=== PATIENT | male | born 1980 | race Caucasian/White ===

== ENCOUNTER 2019-12-21 10:27 | Emergency (ER) | payer OTHER, SELFPAY ==
[2019-12-21 10:43] VITALS: BP 138/92; PULSE 79; RESP 20; TEMP 36.6; O2SAT 100
--- NOTE | 2019-12-21 11:24 | ED.UPPEXIN ---
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 He states that he gets a shooting pain when he extends his lt arm up. He denies any fall or injury to his lt wrist but notes that he does heavy lifting at work. Pt is rt-handed. He has been wearing a wrist splint and using ice that has given him temporary relief. Pt denies shoulder pain, neck pain, or numbness/tingling. MD complaint: injury to: left and wrist Onset (ago): week(s) (2) Other injuries: none Handedness: right Place: work Relieving factors: cold therapy and immobilization Associated symptoms: denies other symptoms Related Data Home Medications Medication Instructions Recorded Confirmed allopurinol 100 mg tablet 100 mg PO DAILY 08/07/19 12/21/19 allopurinol 300 mg tablet 300 mg PO DAILY 08/07/19 12/21/19 Allergies Allergy/AdvReac Type Severity Reaction Status Date / Time No Known Allergies Allergy Verified 12/21/19 10:55 Review of Systems Review of Systems: Narrative: General/Constitutional: No weight loss,fever Eyes: N0: Redness,discharge Ears/Nose/Throat: No: Epistaxis,ear discharge Respiratory: Denies: Hemoptysis Gastrointestinal: No Vomiting, Bleeding-rectal Skin: No Lumps, eruption Neurologic: No Focal Weakness,Sz. Denies numbness/tingling Hematologic: Denies: Petechiae/Purpura Musculoskeletal: Reports lt wrist pain. Denies shoulder pain or neck pain. Psychiatric: No: Suicidal ideation All Other Systems: Reviewed and Negative [facility] Past Medical History Medical History Glaucoma associated with chamber angle anomaly, mild stage Idiopathic gout Mixed hyperlipidemia Surgical History Surgical History (Updated 12/21/19 @ 11:46 by Pat Muhammad) No significant past surgical history Family History Family History (Updated 05/04/16 @ 23:21 by DOCTOR UNKNOWN) Mother Patient's mother is in good health Father Patient's father is in good health Social History Social History Smoking status: Never smoker Alcohol intake: current Comments At time of signature, agree with nursing past medical, surgical, social and family history. There is no relevant family history pertinent to the presenting complaint Exam Narrative: Exam Narrative: General Appearance: Well appearing, Well nourished, No distress EYE: PERRLA, EOMI, Conjunctiva clear Ears: External ear normal, Auditory canal normal Nose: Normal nose, Nares clear Mouth/Throat: Normal appearing, Normal lips Neck: Supple Respiratory: Airway patent, No respiratory distress Musculoskeletal: lt wrist normal strength (mostly intact, limited flexion/extension by pain), Lt wrist tenderness (radial styloid process, with mild decreased ROM), no swelling. No lt shoulder tenderness. Skin: Warm, Dry, Normal color; no snuffbox tenderness Neurological: A&O x3, Speech clear, CN II-XII intact Psychiatric: Normal mood, Normal affect Course Vital Signs Vital signs: Vital Signs Temperature 97.9 F 12/21/19 10:43 Pulse Rate 79 12/21/19 10:43 Respiratory Rate 20 12/21/19 10:43 Blood Pressure 138/92 H 12/21/19 10:43 Pulse Oximetry 100 12/21/19 10:43 Temperature 97.9 F 12/21/19 10:43 Pulse Rate 79 12/21/19 10:43 Respiratory Rate 20 12/21/19 10:43 Blood Pressure 138/92 H 12/21/19 10:43 Pulse Oximetry 100 12/21/19 10:43 Discharge Plan Discharge Clinical Impression: De Quervain's disease (radial styloid tenosynovitis) Patient Disposition: Home, Self-Care Condition: Stable Instructions: Tendinitis (ED) Prescripti
== END 2019-12-21 11:40 | disposition home or self-care (01) ==
PROVIDERS: Emergency Provider Emergency Medicine; PCP Internal Medicine
DX: M65.4 Radial styloid tenosynovitis [de Quervain] (principal); E78.2 Mixed hyperlipidemia; H40.9 Unspecified glaucoma; M10.9 Gout, unspecified
CPT/HCPCS: 99213; G0463

== ENCOUNTER 2022-08-06 08:54 | Outpatient (CLI) | payer OTHER, SELFPAY ==
[2022-08-06 19:07] LABS: Alanine Aminotransferase 45 U/L (6-50); Albumin Level 4.8 g/dL (3.5-5.1); Alkaline Phosphatase 61 U/L (38-126); Anion Gap 14 mmol/L (8-16); Aspartate Amino Transferase 39 U/L (17-59); Bilirubin,Total 0.9 mg/dL (0.2-1.3); Blood Urea Nitrogen 15 mg/dL (9-20); Calcium 9.4 mg/dL (8.4-10.2); Carbon Dioxide 22 mmol/L (22-30); Chloride 106 mmol/L (98-107); Cholesterol 179 mg/dL (0-200); Estimated Glomerular Filt Rate > 60; Glucose 97 mg/dL (65-110); HDL Direct 50 mg/dL; Potassium 4.5 mmol/L (3.4-5.0); Sodium 142 mmol/L (137-145); Triglycerides 116 mg/dL (<150); Uric Acid 6.1 mg/dL (3.5-8.5)
[2022-08-06 19:19] LABS: LDL Cholesterol Direct 92 mg/dL
== END 2022-08-06 08:55 | disposition home or self-care (01) ==
PROVIDERS: PCP Family Medicine; Visit Provider Family Medicine
DX: M10.9 Gout, unspecified (principal); E78.2 Mixed hyperlipidemia; Z13.228 Encounter for screening for other metabolic disorders
CPT/HCPCS: 36415; 80053; 80061; 84550

== ENCOUNTER 2024-01-08 14:28 | Outpatient (CLI) | payer OTHER, SELFPAY ==
[2024-01-08 21:30] LABS: Alanine Aminotransferase 32 U/L (6-50); Albumin Level 4.7 g/dL (3.5-5.1); Alkaline Phosphatase 60 U/L (38-126); Anion Gap 3 mmol/L (4-12); Aspartate Amino Transferase 38 U/L (17-59); Bilirubin,Total 1.2 mg/dL (0.2-1.3); Blood Urea Nitrogen 14 mg/dL (9-20); Calcium 9.8 mg/dL (8.4-10.2); Carbon Dioxide 32 mmol/L (22-30); Chloride 105 mmol/L (98-107); Cholesterol 173 mg/dL (0-200); Estimated Glomerular Filt Rate > 60; Glucose 86 mg/dL (65-110); HDL Direct 46 mg/dL; Potassium 3.6 mmol/L (3.4-5.0); Sodium 140 mmol/L (137-145); Triglycerides 133 mg/dL (<150); Uric Acid 6.3 mg/dL (3.5-8.5)
[2024-01-08 21:40] LABS: LDL Cholesterol Direct 106 mg/dL
== END 2024-01-08 14:29 | disposition home or self-care (01) ==
LOC: ANHGOSHLAB 14:29
PROVIDERS: PCP Family Medicine; Visit Provider Family Medicine
DX: Z00.00 Encounter for general adult medical examination without abnormal findings (principal); E78.2 Mixed hyperlipidemia; M10.9 Gout, unspecified; Z13.228 Encounter for screening for other metabolic disorders
CPT/HCPCS: 36415; 80053; 80061; 84550

== ENCOUNTER 2024-01-14 13:39 | Outpatient (CLI) | payer OTHER, SELFPAY ==
[2024-01-14 20:01] LABS: HIV 1/2 Ab P24 Ag Result Negative (Negative)
[2024-01-14 20:10] LABS: Chlamydia trachomatis NOT DETECTED (NOT DETECTE); Neisseria gonorrhoeae PCR NOT DETECTED (NOT DETECTE)
[2024-01-14 20:22] LABS: Hepatitis C Virus Antibody Negative (Negative)
[2024-01-15 14:40] LABS: Rapid Plasma Reagin Non-Reactive (NonReactive)
== END 2024-01-14 13:40 | disposition home or self-care (01) ==
LOC: ANHGOSHLAB 13:40
PROVIDERS: PCP Family Medicine; Visit Provider Family Medicine
DX: Z20.2 Contact with and (suspected) exposure to infections with a predominantly sexual mode of transmission (principal)
CPT/HCPCS: 36415; 86592; 86703; 86803; 87491; 87591; G0432

== ENCOUNTER 2024-06-02 12:44 | Emergency (ER) | payer OTHER, SELFPAY ==
[2024-06-02 12:57] VITALS: BP 140/92; PULSE 90; RESP 16; TEMP 36.3; O2SAT 97
--- NOTE | 2024-06-02 13:02 | ED.FEMALEGU ---
HPI - Female Genitourinary General Chief complaint: Urogenital-Male Stated complaint: blood in urine Time Seen by Provider: 06/02/24 13:04 Source: patient, RN notes reviewed and old records reviewed Mode of arrival: ambulatory Limitations: no limitations History of Present Illness HPI Narrative: 44-year-old male presents to the [facility] with concerns of blood in his urine. Patient reports symptoms started on Saturday, drink a lot a water, got a little bit better on Saturday and Saturday but still was some blood in it. Woke up today and it is dark and passing blood clots. Patient denies any abdominal pain, any new back pain. Denies fevers. Related Data Home Medications Medication Instructions Recorded Confirmed latanoprost 0.005 % eye drops 1 drp EACH EYE HS 06/02/24 06/02/24 sildenafil (pulm.hypertension) 20 20 mg PO PRN PRN Erectile 06/02/24 06/02/24 mg tablet Dysfunction timolol maleate 0.5 % eye drops 1 drp EACH EYE DAILY 06/02/24 06/02/24 Allergies Allergy/AdvReac Type Severity Reaction Status Date / Time No Known Allergies Allergy Verified 06/02/24 12:52 Review of Systems Review of Systems: All systems reviewed & are unremarkable except as noted in HPI and below Constitutional: Constitutional: Reports no additional constitutional complaints Eyes: Eyes: Reports no additional eye complaints ENT: Reports system reviewed and no additional complaints, except as documented Cardiovascular: Cardiovascular: Reports no additional cardiovascular complaints, Denies chest pain and Denies dyspnea Respiratory: Respiratory: Reports no additional respiratory complaints, Denies chest congestion, Denies cough and Denies dyspnea Gastrointestinal: Gastrointestinal: Reports no additional gastrointestinal complaints, Denies abdominal pain, Denies nausea and Denies vomiting Genitourinary: Genitourinary: Reports as per HPI and Reports hematuria Musculoskeletal: Musculoskeletal: Reports no additional musculoskeletal complaints Integumentary/Breasts: Skin/Breast: Reports system reviewed and no additional complaints, except as docu Neurologic: Reports system reviewed and no additional complaints, except as documented Psychiatric: Psychiatric: Reports no additional psychiatric complaints Allergic/Immunologic: Allergic/Immunologic: Reports no additional allergic/immunologic complaints PMFSH Past Medical History Medical History Glaucoma associated with chamber angle anomaly, mild stage Idiopathic gout Mixed hyperlipidemia Surgical History Surgical History No significant past surgical history Family History Family History Mother Patient's mother is in good health Father Patient's father is in good health Grandparent Carcinoma of colon Social History Social History Social History: caffeine- none daily Smoking status: Never smoker Second hand tobacco smoke exposure: No Alcohol intake: current Drinks per week: 12 Alcohol use details: liquor Substance use: never Do You Feel Safe in your Home?: Yes Lack of Transportation: No Lack of Food: Sometimes True Current Housing: I Have Housing Concerned About Future Housing: No Difficulty Paying Gas/Electric Bills: No Difficulty Paying for Meds: No Currently Unemployed: No Education: Bachelor's Degree Difficulty w/ Childcare or Family Care: No Comments At the time of my signature, I reviewed and agree with the nursing past medical, surgical, social, and family history. There is no relevant family history pertinent to the patient complaint. Exam Const: General: cooperative, healthy appearing, comfortable, no acute distress, well developed, alert and well nourished Nutritional Appearance: well nourished Orientation/conscio
[2024-06-03 11:36] LABS: EDUAAPPEAR Cloudy; EDUABILI 3+; EDUABLOOD 3+; EDUACOLOR1 Brown; EDUAGLUCOSE Negative; EDUAKETONE 2+; EDUALEUKO 2+; EDUANITRATE Positive; EDUAPROTEIN 2+; EDUASPGRAVITY 1.025
== END 2024-06-02 13:39 | disposition short-term general hospital (02) ==
PROVIDERS: Emergency Provider Nurse Practitioner; PCP Family Medicine
DX: R31.0 Gross hematuria (principal); H40.9 Unspecified glaucoma; M10.00 Idiopathic gout, unspecified site; E78.2 Mixed hyperlipidemia
CPT/HCPCS: 81003; 87086; 99213; G0463

== ENCOUNTER 2024-06-02 15:03 | Emergency (ER) | payer OTHER, SELFPAY ==
--- NOTE | ~2024-06-02 | CT_ITS ---
EXAMINATION: CT abdomen pelvis wo con DATE: 06/02/2024 19:06 INDICATION: Hematuria. TECHNIQUE: Computed tomography (CT) of the abdomen and pelvis was performed without intravenous contr ast. Automated exposure control and iterative reconstruction technique were employed. The dose-length product was 1017.30 mGy-cm. COMPARISON: None. FINDINGS: The visualized portions of lung bases demonstrate mild atelectasis on the left. No pleural effusion. The heart size is normal. No pericardial effusion. The liver, gallbladder, spleen, pancreas , and adrenal glands are normal. There is a 5 mm stone in right renal pelvis. There is a 2 mm stone i n left kidney. The ureters are normal. The bladder is normal. There are bilateral inguinal hernias co ntaining fat. There are no dilated loops of bowel. The appendix is normal. There are no pathologicall y enlarged lymph nodes. There is no free intraperitoneal fluid. There is an umbilical hernia containi ng fat. There is mild thoracic spondylosis and moderate lower lumbar spondylosis. IMPRESSION: 1. Bilateral nonobstructing kidney stones. Reviewed, dictated and finalized at location A.
[2024-06-02 15:43] VITALS: BP 168/104; PULSE 100; RESP 18; TEMP 36.7; O2SAT 99
--- NOTE | 2024-06-02 15:45 | ED.MALEGU ---
HPI - Male Genitourinary General Chief complaint: Urogenital-Male Stated complaint: blood in urine Time Seen by Provider: 06/02/24 15:45 Focused HPI: This is a 44 year old male that presents to the ER for hematuria. Ongoing over the last 4 days. Denies any associated pain, vomiting, dysuria, fevers. GENERAL: Well-appearing, well-nourished, and in no acute distress. HEAD: Normocephalic, atraumatic. CHEST: Clear to auscultation. ?No respiratory distress. HEART: Regular rate and rhythm.? NEURO: ?Alert and oriented x3. Patient screened in triage and initial orders placed.? ?Additional care and disposition to be based upon?diagnostic testing and treatment. Related Data Home Medications Medication Instructions Recorded Confirmed latanoprost 0.005 % eye drops 1 drp EACH EYE HS 06/02/24 06/02/24 sildenafil (pulm.hypertension) 20 20 mg PO PRN PRN Erectile 06/02/24 06/02/24 mg tablet Dysfunction timolol maleate 0.5 % eye drops 1 drp EACH EYE DAILY 06/02/24 06/02/24 Allergies Allergy/AdvReac Type Severity Reaction Status Date / Time No Known Allergies Allergy Verified 06/02/24 12:52 [facility] Past Medical History Medical History (Updated 06/04/24 @ 15:57 by Nilam Amador PA-C) Glaucoma associated with chamber angle anomaly, mild stage Idiopathic gout Mixed hyperlipidemia Surgical History Surgical History No significant past surgical history Family History Family History Mother Patient's mother is in good health Father Patient's father is in good health Grandparent Carcinoma of colon Social History Social History Social History: caffeine- none daily Smoking status: Never smoker Second hand tobacco smoke exposure: No Alcohol intake: current Drinks per week: 12 Alcohol use details: liquor Substance use: never Do You Feel Safe in your Home?: Yes Lack of Transportation: No Lack of Food: Sometimes True Current Housing: I Have Housing Concerned About Future Housing: No Difficulty Paying Gas/Electric Bills: No Difficulty Paying for Meds: No Currently Unemployed: No Education: Bachelor's Degree Difficulty w/ Childcare or Family Care: No Course Vital Signs Vital signs: Vital Signs Temperature 98.1 F 06/02/24 15:43 Pulse Rate 100 06/02/24 15:43 Respiratory Rate 18 06/02/24 15:43 Blood Pressure 168/104 H 06/02/24 15:43 Pulse Oximetry 99 06/02/24 15:43 Oxygen Delivery Room Air 06/02/24 15:43 Temperature 98.1 F 06/02/24 15:43 Pulse Rate 100 06/02/24 15:43 Respiratory Rate 18 06/02/24 15:43 Blood Pressure 168/104 H 06/02/24 15:43 Pulse Oximetry 99 06/02/24 15:43 Oxygen Delivery Room Air 06/02/24 15:43 MDM - Male Genitourinary MDM Narrative Medical decision making narrative: Patient left after medical screening exam and initial workup before any further evaluation or management Lab Data 06/02/24 16:32 06/02/24 16:32 Labs: Lab Results 06/02/24 06/02/24 Range/Units 15:49 16:32 WBC 9.3 (4.5-10.0) K/mm3 RBC 4.80 (4.6-6.20) M/mm3 Hgb 15.2 (14.0-18.0) g/dL Hct 43.4 (42.0-52.0) % MCV 90.4 (80-100) fl MCH 31.7 (26-34) pg MCHC 35.0 (32-36) g/dl RDW 13.1 (11.5-14.5) % Plt Count 283 (150-375) k/mm3 MPV 10.7 H (7.4-10.4) fl Immature Gran % (Auto) 0.3 (0-0.5) % Neut % (Auto) 59.9 (45.5-73.1) % Lymph % (Auto) 26.8 (18.3-44.2) % [place] % (Auto) 9.5 H (2.6-8.5) % Eos % (Auto) 2.6 (0-4.4) % Baso % (Auto) 0.9 (0.2-1.2) % Lymph # (Auto) 2.49 (0.9-3.2) K/mm3 [place] # (Auto) 0.9 H (0.1-0.6) K/mm3 Eos # (Auto) 0.2 (0-0.3) K/mm3 Baso # (Auto) 0.1 (0.0-0.1) K/mm3 Abs Immat Gran (auto) 0.03 (0.00-0.031) K/mm3 Absolute Neuts (auto) 5.6 (1.3-6.7) K/mm3 Absolute Nucl
[2024-06-02 16:08] LABS: Add Urine Microscopic? YES; Appearance Urine Cloudy (Clear); Bacteria Urine None Seen /hpf; Bilirubin Urine Negative (Negative); Blood Urine 3+ (Negative); Color Urine Dark Yellow (Yellow); Glucose Urine UA Negative (Negative); Ketones Urine Negative (Negative); Leukocyte Esterase Ur 1+ LEU/UL (Negative); Nitrate Urine Negative (Negative); Non Pathogenic Casts 0-2; Protein Urine 1+ mg/dL (Negative); RBC Urine >100 /hpf (0-2); Specific Grav Ur 1.021 (1.001-1.035); Squamous Epithelial Cell Urine None Seen /hpf (Few); pH Urine 5.5 (5.0-9.0)
[2024-06-02 16:53] LABS: Basophils Absolute Auto 0.1 K/mm3 (0.0-0.1); Basophils Percent Auto 0.9 % (0.2-1.2); Eosinophils Absolute Auto 0.2 K/mm3 (0-0.3); Eosinophils Percent Auto 2.6 % (0-4.4); Hematocrit 43.4 % (42.0-52.0); Hemoglobin 15.2 g/dL (14.0-18.0); Immature Granulocyte Absolute 0.03 K/mm3 (0.00-0.031); Immature Granulocyte Percent A 0.3 % (0-0.5); Lymphocytes Absolute Auto 2.49 K/mm3 (0.9-3.2); Lymphocytes Percent Auto 26.8 % (18.3-44.2); Mean Corpuscular Hemoglobin 31.7 pg (26-34); Mean Corpuscular Volume 90.4 fl (80-100); Mean Platelet Volume 10.7 fl (7.4-10.4); Monocytes Absolute Auto 0.9 K/mm3 (0.1-0.6); Monocytes Percent Auto 9.5 % (2.6-8.5); Neutrophils Absolute Auto 5.6 K/mm3 (1.3-6.7); Neutrophils Percent Auto 59.9 % (45.5-73.1); Platelet Count Result 283 k/mm3 (150-375); Red Cell Distribution Width 13.1 % (11.5-14.5); White Blood Count 9.3 K/mm3 (4.5-10.0)
[2024-06-02 17:09] LABS: Alanine Aminotransferase 68 U/L (6-50); Albumin Level 4.8 g/dL (3.5-5.1); Alkaline Phosphatase 57 U/L (38-126); Anion Gap 10 mmol/L (4-12); Aspartate Amino Transferase 40 U/L (17-59); Bilirubin,Total 0.8 mg/dL (0.2-1.3); Blood Urea Nitrogen 14 mg/dL (9-20); Calcium 9.4 mg/dL (8.4-10.2); Carbon Dioxide 29 mmol/L (22-30); Chloride 100 mmol/L (98-107); Estimated CRCL calculation 101 ml/min; Estimated Glomerular Filt Rate > 60; Glucose 108 mg/dL (65-110); Lipase 281 U/L (23-300); Potassium 3.9 mmol/L (3.4-5.0); Sodium 139 mmol/L (137-145)
--- NOTE | 2024-06-02 22:03 | PC.NURSE ---
patient states they are unable to be in the waiting room any longer and are not having symptoms. states they will call PCP fist thing in the morning. no resp. distress and ambulates well
== END 2024-06-03 03:54 | disposition left against medical advice (07) ==
PROVIDERS: Emergency Provider Physician Assistant; PCP Family Medicine
DX: R31.9 Hematuria, unspecified (principal); E78.2 Mixed hyperlipidemia; M10.00 Idiopathic gout, unspecified site; H40.50 Glaucoma secondary to other eye disorders, unspecified eye; Z79.899 Other long term (current) drug therapy; N20.0 Calculus of kidney
CPT/HCPCS: 36415; 74176; 80053; 81001; 81003; 83690; 85025; 87086; 99284

== ENCOUNTER 2024-06-23 08:45 | Outpatient (CLI) | payer OTHER, SELFPAY ==
--- NOTE | ~2024-06-23 | XR_ITS ---
XR abdomen/kub 1V Ordering provider: Eloy Pagan MD History: . Kidney stone on right side . Comparison: None. FINDINGS: BOWEL: Nonobstructive bowel gas pattern. ORGANOMEGALY: None. SIGNIFICANT PATHOLOGIC CALCIFICATIONS: Tiny stone in the right kidney lower pole. OTHER: No free air is seen under the diaphragm. IMPRESSION: NO ACUTE ABDOMINAL FINDINGS. Tiny stone in the right kidney lower pole. Reviewed, dictated and finalized at location A.
== END 2024-06-23 08:46 | disposition home or self-care (01) ==
PROVIDERS: PCP Family Medicine; Visit Provider Urology
DX: N20.0 Calculus of kidney (principal)
CPT/HCPCS: 74018

== ENCOUNTER 2024-07-15 10:44 | Outpatient (CLI) | payer BC, SELFPAY ==
--- NOTE | ~2024-07-15 | CT_ITS ---
Non-contrast CT scan of the Abdomen and Pelvis Clinical indication: Right kidney stone Technique: 2.5 mm axial scans were obtained through the abdomen and pelvis without intravenous or or al contrast. Dose reduction technique was used on this scan by utilizing automated exposure control a nd iterative reconstruction technique. The dose-length product (DLP) was 712.66 mGy-cm. COMPARISON: 06/02/2024 Findings: Images through the lung bases reveal no abnormalities. 5 mm nonobstructing right renal stone present. No left renal stone. No ureteral stone or hydronephros is on either side. The liver, spleen, pancreas, gallbladder, and adrenals appear normal. There is no aortic aneurysm. There is no evidence of bowel obstruction. Images through the pelvis were performed. There is no evidence of ascites or lymphadenopathy. Urinary bladder unremarkable. No pelvic mass seen. Small fat-containing bilateral internal hernias are prese nt, left larger than right. Impression: 5 mm nonobstructing right renal stone. No ureteral stone or hydronephrosis on either side. Bilateral fat-containing inguinal hernias, left larger than right. Reviewed, dictated and finalized at location . Impression: 5 mm nonobstructing right renal stone. No ureteral stone or hydronephrosis on e ither side. Bilateral fat-containing inguinal hernias, left larger than right.
--- NOTE | ~2024-07-15 | XR_ITS ---
XR abdomen/kub 1V 07/15/2024 11:10 Indication: Kidney stone. Procedure: KUB Comparison: 06/23/2024 Findings: Stable right renal stone. Kidneys partially obscured by bowel content. Nonobstructive bowel gas pattern. No acute osseous abnormality. Impression: 1: Stable right nephrolithiasis. Reviewed, dictated and finalized at location B. Impression: 1: Stable right nephrolithiasis.
== END 2024-07-15 10:45 | disposition home or self-care (01) ==
PROVIDERS: PCP Family Medicine; Visit Provider Urology
DX: N20.0 Calculus of kidney (principal); K40.20 Bilateral inguinal hernia, without obstruction or gangrene, not specified as recurrent
CPT/HCPCS: 74018; 74176

== ENCOUNTER 2024-07-31 09:51 | Outpatient (CLI) | payer BC, SELFPAY ==
--- NOTE | 2024-07-31 10:03 | ECG_ITS ---
Test Date: 2024-07-31 10:16:17 Measurements Intervals [place] Rate: 79 P: 31 KS: 154 QRS: 50 QRSD: 97 T: 54 QT: 339 QTc: 390 Interpretive Statements SINUS RHYTHM No previous ECG available for comparison Electronically Signed On 07-31-2024 15:36:46 CDT by Harinder Wilson M.D.
== END 2024-07-31 09:52 | disposition home or self-care (01) ==
PROVIDERS: PCP Family Medicine; Visit Provider Urology
DX: Z01.818 Encounter for other preprocedural examination (principal); E78.2 Mixed hyperlipidemia
CPT/HCPCS: 93005

== ENCOUNTER 2024-08-06 01:09 | Day surgery (SDC) | payer BC, SELFPAY ==
--- NOTE | 2024-07-24 11:59 | P.HP_ITS ---
History of Present Illness History of Present Illness Consent: Risks, benefits, and alternatives have been discussed and questions answered. Patient agrees to proceed with procedure. Chief complaint: right renal stone Narrative: Tyron Almeida is a 44 year old male recently referred for evaluation gross hematuria. Upper tract imaging revealed 2 mm stone his left and a 5 mm right renal pelvic stone. The stone a noncalcified a KUB. Unfortunately, following attempted urinary alkalinization, the stones persist. After discussion options he is electing for endoscopic approach to his right renal pelvic stone. He is aware of the risk including, not limited to, need for additional procedures, stent placement, hematuria and ureteral injury Review of Systems Cardiovascular: Cardiovascular: Denies chest pain, Denies lightheadedness, Denies palpitations and Denies dyspnea Respiratory: Respiratory: Denies dyspnea Gastrointestinal: Gastrointestinal: Denies diarrhea, Denies nausea and Denies vomiting Genitourinary: Genitourinary: Denies hematuria and Denies dysuria Endocrine: Endocrine: Denies palpitations PMFSH Past Medical History Medical History (Updated 07/24/24 @ 12:01 by Eloy Pagan MD) Glaucoma associated with chamber angle anomaly, mild stage Idiopathic gout Mixed hyperlipidemia Surgical History Surgical History No significant past surgical history Family History Family History Mother Patient's mother is in good health Father Patient's father is in good health Grandparent Carcinoma of colon Social History Social History Social History: caffeine- none daily Smoking status: Never smoker Second hand tobacco smoke exposure: No Alcohol intake: current Drinks per week: 12 Alcohol use details: liquor Substance use: never Do You Feel Safe in your Home?: Yes Lack of Transportation: No Lack of Food: Sometimes True Current Housing: I Have Housing Concerned About Future Housing: No Difficulty Paying Gas/Electric Bills: No Difficulty Paying for Meds: No Currently Unemployed: No Education: Bachelor's Degree Difficulty w/ Childcare or Family Care: No Meds Home Medications and Allergies Home Medications Medication Instructions Recorded Confirmed Type atorvastatin 20 mg tablet 20 mg PO DAILY #90 tabs 02/17/24 06/19/24 Rx cetirizine 10 mg tablet See Rx Instructions .Route 02/17/24 06/19/24 Rx .COMPLEX #90 tabs allopurinol 300 mg tablet 300 mg PO DAILY #90 tabs 03/16/24 06/19/24 Rx latanoprost 0.005 % eye drops 1 drp EACH EYE HS 06/02/24 06/19/24 History sildenafil (pulm.hypertension) 20 20 mg PO PRN PRN Erectile 06/02/24 06/19/24 History mg tablet Dysfunction timolol maleate 0.5 % eye drops 1 drp EACH EYE DAILY 06/02/24 06/19/24 History tamsulosin 0.4 mg capsule 0.4 mg PO DAILY #30 caps 06/03/24 06/19/24 Rx hydrocodone 5 mg-acetaminophen 325 1 tablet PO Q8H PRN pain #7 tabs 06/04/24 06/19/24 Rx mg tablet phentermine 37.5 mg capsule 37.5 mg PO DAILY #30 caps 07/10/24 Rx Allergies Allergy/AdvReac Type Severity Reaction Status Date / Time No Known Allergies Allergy Verified 06/19/24 10:42 Exam Const: General: no acute distress Resp: Effort & Inspection: normal respiratory effort GI: Inspection: non-distended GI Palp: No abdominal tenderness and No Guarding due to palpation present (GI) Auscultation: normal bowel sounds Assessment and Plan Assessment and plan (1) Bilateral renal stones: Code(s): N20.0 - Calculus of kidney Status: Acute Assessment and Plan: * Cystoscopy, right ureteroscopy with laser lithotripsy, stone extraction with possible retrograde pyelography and stent placement
[2024-07-29 15:16] VITALS: BMI 34.7
--- NOTE | 2024-07-29 15:36 | PC.NURSE ---
Report to the Outpatient Waiting Room, entrance under the green pavilion located off [facility], at time _0815 on date __08/06/24 . Planned Procedure Time: _1015 .? Time changes happen often and if your time is changed the preop area will call you the afternoon before. - You and your visitor will be asked to self-screen and do not enter if you have any COVID symptoms. Please call surgeon if you need to reschedule. - A mask is optional within the hospital at this time. Patients may have clear liquids (water, carbonated beverages, clear teas, apple juice) until 3 hours prior to surgery with a maximum of 20 ounces. - No food from midnight until time of surgery and no smoking - Infants may have breast milk until 4 hours before surgery, formula 6 hours prior to surgery. - Children will be allowed to drink immediately following surgery.? If applicable, please bring a bottle or sippy cup to assist with drinking. Juice, water, soda, and popsicles are readily available.? For infants on formula, please bring formula the day of surgery.? Pacifiers are allowed. Take only the following medications with a SIP of water on the morning of surgery: _Hydrocodone/acetaminophen DO NOT STOP ANY OF YOUR OTHER PRESCRIPTION MEDICATIONS PRIOR TO SURGERY EXCEPT THE FOLLOWING Medications to discontinue per physician __Vitamins 3 days prior Please no make-up, nail yemeni, hairspray, perfume, deodorant, or body powder the day of surgery.? No jewelry (including any body piercings) or valuables the day of surgery, leave them at home.? Please take a shower or bath the night before, or the morning of, surgery with an antibacterial soap.? Wear comfortable, loose fitting clothing.? Children are encouraged to wear pajamas. - Jewelry must be removed prior to entering the operating room.? Rings and piercings that are not removed may be cut off. - The hospital will not accept responsibility for valuables.? - Please leave all valuables, including medications, at home the day of surgery. If you are going home after surgery, a licensed restaurant delivery driver must drive you home.? - NO public transportation without another adult if you receive anesthesia. - We recommend that an adult stay with you for 24 hours following discharge. - We also recommend that you do not drive, make important decision, drink alcoholic beverages, or take any drugs that were not prescribed by your health care provider for at least 24 hours after your discharge time. For Pediatric surgeries, we recommend two adults accompany the child home. Follow any additional instructions given to you from your surgeon. Telephone instructions given to __Tyron and asked if any additional questions and then verbalized understanding. Patient advised to call surgeon office or pre surgery nurse liaison [phone] if any additional questions.
[2024-08-06] VITALS (7 sets, daily range): BP systolic 123–147; BP diastolic 86–96; PULSE 84–96; RESP 14–20; TEMP 36.4–36.6; O2SAT 96–98; BMI 34.5
--- NOTE | ~2024-08-06 | XR_ITS ---
EXAMINATION: XR retrograde pyelo w/stent RT DATE: 08/06/2024 11:42 INDICATION: Laser right renal stone extraction and stent placement TECHNIQUE: 39 fluoroscopic images of the abdomen and pelvis were obtained during procedure performed by Dr. Pagan. Radiologist was not present for the imaging or procedure. The amount of fluoroscopy ti me used during this procedure was 1.9 minutes. COMPARISON: None. FINDINGS: Images demonstrate cannulation of the right ureter with injected contrast opacifying the right renal collecting system. The stone seen on the prior radiographs of the lower pole the right kidney is not visualized which could be due to either interval extraction or limitation fluoroscopic technique. Fin al images demonstrate placement of a right internal ureteral stent with loops formed in the right coco al pelvis and bladder. IMPRESSION: 1. Fluoroscopy utilized during reported right renal stone extraction with placement of a right internal medicine nurse al ureteral stent in expected position. See procedure note for further detail. Reviewed, dictated and finalized at location A. IMPRESSION: 1. Fluoroscopy utilized during reported right renal stone extraction with place ment of a right internal ureteral stent in expected position. See procedure not e for further detail.
--- NOTE | 2024-08-06 06:14 | WPDHPUPDATE1 ---
History and Physical Update Update Date/Time: 08/06/24 06:14 History and Physical has been reviewed, including an updated exam of the patient. There are NO changes in the patient's condition. Risks, benefits, and alternatives have been discussed and questions answered. Patient agrees to proceed with procedure.
--- NOTE | 2024-08-06 08:35 | WPDANESEPPF ---
Anes - Initial Pre Proc Eval Procedure: Operation Date: 08/06/24 10:15 Proposed Procedures p Cystoscopy, Right Ureteroscopy, Possible Stone Extraction, Possible Right Retrograde Pyelogram, Possible Right Stent Placement, Possible Holmium Laser Lithotripsy, - Eloy Pagan MD Date/Time: 08/06/24 08:35 Surgeon: Eloy Pagan MD Pre Op Diagnosis: right renal stone Patient Data Age: 44 Gender: M Height: 1.68 m Weight: 97.52 kg Last Vital Signs O2 Del Method Room Air 07/29/24 14:58 Allergies Allergy/AdvReac Type Severity Reaction Status Date / Time No Known Allergies Allergy Verified 07/29/24 15:00 Home Medications Medication Instructions Recorded Confirmed Type atorvastatin 20 mg tablet 20 mg PO DAILY #90 tabs 02/17/24 07/29/24 Rx cetirizine 10 mg tablet See Rx Instructions .Route 02/17/24 07/29/24 Rx .COMPLEX #90 tabs allopurinol 300 mg tablet 300 mg PO DAILY #90 tabs 03/16/24 07/29/24 Rx latanoprost 0.005 % eye drops 1 drp EACH EYE HS 06/02/24 07/29/24 History sildenafil (pulm.hypertension) 20 20 mg PO PRN PRN Erectile 06/02/24 07/29/24 History mg tablet Dysfunction timolol maleate 0.5 % eye drops 1 drp EACH EYE DAILY 06/02/24 07/29/24 History hydrocodone 5 mg-acetaminophen 325 1 tablet PO Q8H PRN pain #7 tabs 06/04/24 07/29/24 Rx mg tablet phentermine 37.5 mg capsule 37.5 mg PO DAILY #30 caps 07/10/24 07/29/24 Rx Adults Multivitamin 1 tablet PO DAILY 07/29/24 07/29/24 History esomeprazole magnesium 20 mg 20 mg PO DAILY 07/29/24 07/29/24 History capsule,delayed release (Nexium) Patient hx anesthesia problems: none Family hx anesthesia problems: none Results Review: All pre-operative results and documents have been reviewed as part of the pre-operative evaluation. [facility] Past Medical History Medical History Bilateral renal stones Glaucoma associated with chamber angle anomaly, mild stage Idiopathic gout Mixed hyperlipidemia Obesity (BMI 30-39.9) Surgical History Surgical History No significant past surgical history Family History Family History Mother Patient's mother is in good health Father Patient's father is in good health Grandparent Carcinoma of colon Social History Social History Social History: caffeine- none daily Smoking status: Never smoker Second hand tobacco smoke exposure: No Alcohol intake: current Drinks per week: 12 Alcohol use details: liquor Substance use: never Substance use type: marijuana Last use: 2020 Do You Feel Safe in your Home?: Yes Lack of Transportation: No Lack of Food: Sometimes True Current Housing: I Have Housing Concerned About Future Housing: No Difficulty Paying Gas/Electric Bills: No Difficulty Paying for Meds: No Currently Unemployed: No Education: Bachelor's Degree Difficulty w/ Childcare or Family Care: No Living arrangements: alone Spiritual care concerns: No Anes - Eval Final PreProcedure Day of Procedure 08/06/24 08:35 Patient weight: overweight Heart: regular rate and rhythm Lungs: clear to auscultation Airway: Mallampati scale class III Neurological: alert and oriented Last oral intake: >/= 8 hours ASA classification: II Emergent: no Anesthetic plan: proceed Anesthesia type and monitoring: general LMA Results Review: All pre-operative results and documents have been reviewed as part of the pre-operative evaluation. Informed Consent: The patient's anesthetic plan and its attendant risks and benefits were discussed with the patient/family/POA. Questions were solicited and answers provided to the satisfaction of the patient/family/POA.
[2024-08-06] MEDS: LACTATED RINGERS 1,000 ML 30 ML IV CONT (08:45)
[2024-08-06] MEDS: ceFAZolin 2 GM/D5W 50 ML 2 GM/50 ML BAG IVPB (11:03)
[2024-08-06] MEDS: LIDOCAINE HCL 2% GEL UROJET 10 ML PKG MUCOUS MEM (11:23)
--- NOTE | 2024-08-06 11:40 | W.PM.PROC2 ---
Procedure Note - Detailed Date of Procedure 08/06/24 Pre-op Diagnosis Right ureteral stone Post-op Diagnosis Other (Right renal stone) Procedure Performed Cystoscopy, right ureteroscopy with laser lithotripsy ureteral stone, right retrograde pyelography and ureteral stent placement Surgeon Eloy Pagan MD Anesthesia General Description of Procedure Patient is brought to the operative suite was prepped draped in routine sterile fashion while in dorsal lithotomy position after the uneventful induction of general LMA anesthetic. Cystoscopy was undertaken with a 19 F rigid cystoscope. He has no urethral strictures and minimal prostatic hyperplasia but a somewhat high bladder neck. Bladder mucosa is normal there was no intravesical foreign body or neoplasm. A 0.035 in glidewire was advanced into his right renal pelvis under fluoroscopy. He seems to have a stricture in the distal ureter or a very narrow ureter which makes dilatation difficult/challenging. Was able to dilate with an 8 F dilator but could not pass a 10 F dilator. I was able to place a 7.5 F flexible ureteral scope. The 5 mm stone that had been in his proximal ureter had washed back into his kidney with irrigation. We identified the stone using a 200 micron holmium laser fiber dusted into particles all smaller than 1 mm. Ureteral scope was removed and a 4.8 F double-J ureteral stent was positioned with the proximal coil in the renal pelvis and distal coil in the bladder. Retrograde pyelography was used to ensure inspection of all calices and appropriate positioning of the stent. The patient tolerated the procedure well was taken recovery room in good condition Estimated Blood Loss 5 Drains Yes Pathology None sent Complications No immediate complications Condition Stable
== END 2024-08-06 13:27 | disposition home or self-care (01) ==
PROVIDERS: PCP Family Medicine; Visit Provider Urology
PROC: (CPT 52352; principal; 2024-08-06 10:15)
DX: N20.0 Calculus of kidney (principal); E78.2 Mixed hyperlipidemia; Z80.0 Family history of malignant neoplasm of digestive organs; Z79.891 Long term (current) use of opiate analgesic
CPT/HCPCS: 52356; 74420; C1769; C2617; J0690; J1100; J2003; J2250; J2405; J2704; J3010; J7120; Q9966

== ENCOUNTER 2024-11-05 14:18 | Outpatient (CLI) | payer BC, SELFPAY ==
--- NOTE | ~2024-11-05 | CT_ITS ---
EXAMINATION: CT sinus wo con DATE: 11/05/2024 14:32 INDICATION: Acute recurrent maxillary sinusitis. TECHNIQUE: Computed tomography (CT) of the paranasal sinuses was performed without intravenous contra st. Iterative reconstruction technique was employed. The dose-length product was 253.47 mGy-cm. COMPARISON: CT 03/19/2019 FINDINGS: There is mild mucosal thickening in the frontal recesses. There is mild mucosal thickening in the ethmoid sinuses. There is moderate mucosal thickening in the sphenoid sinuses. There is mild m ucosal thickening in the maxillary sinuses. There is rightward deviation of the nasal septum. There a re bilateral Ruth Ann cells. The ostiomeatal units are patent. IMPRESSION: 1. Mucosal thickening in the paranasal sinuses. 2. Rightward deviation of the nasal septum. Reviewed, dictated and finalized at location A. 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
== END 2024-11-05 14:19 | disposition home or self-care (01) ==
PROVIDERS: PCP Family Medicine; Visit Provider Otolaryngology
DX: J01.01 Acute recurrent maxillary sinusitis (principal); G47.33 Obstructive sleep apnea (adult) (pediatric); J31.0 Chronic rhinitis; J34.2 Deviated nasal septum
CPT/HCPCS: 70486

== ENCOUNTER 2024-12-08 07:56 | Outpatient (CLI) | payer BC, SELFPAY ==
[2024-12-08 13:26] LABS: Hematocrit 43.4 % (42.0-52.0); Hemoglobin 14.4 g/dL (14.0-18.0); Mean Corpuscular HGB Conc 33.2 g/dl (32-36); Mean Corpuscular Volume 93.3 fl (80-100); Mean Platelet Volume 11.2 fl (7.4-10.4); Platelet Count Result 299 k/mm3 (150-375); Red Blood Count 4.65 M/mm3 (4.6-6.20); Red Cell Distribution Width 12.9 % (11.5-14.5); White Blood Count 6.7 K/mm3 (4.5-10.0)
[2024-12-08 15:01] LABS: Alanine Aminotransferase 35 U/L (6-50); Albumin Level 4.4 g/dL (3.5-5.1); Alkaline Phosphatase 64 U/L (38-126); Anion Gap 9 mmol/L (4-12); Aspartate Amino Transferase 52 U/L (17-59); Blood Urea Nitrogen 18 mg/dL (9-20); Calcium 8.9 mg/dL (8.4-10.2); Carbon Dioxide 28 mmol/L (22-30); Chloride 104 mmol/L (98-107); Cholesterol 143 mg/dL (0-200); Estimated Glomerular Filt Rate > 60; Glucose 115 mg/dL (65-110); HDL Direct 34 mg/dL; Potassium 4.2 mmol/L (3.4-5.0); Sodium 141 mmol/L (137-145); Triglycerides 92 mg/dL (<150)
[2024-12-08 15:17] LABS: LDL Cholesterol Direct 80 mg/dL
[2024-12-08 15:24] LABS: Hemoglobin A1C 5.2 % (<5.7)
[2024-12-08 15:36] LABS: Prostate Specific Antigen 0.5 ng/mL (< OR = 4.0)
== END 2024-12-08 07:57 | disposition home or self-care (01) ==
LOC: ANHGOSHLAB 07:56
PROVIDERS: PCP Family Medicine; Visit Provider Family Medicine
DX: R03.0 Elevated blood-pressure reading, without diagnosis of hypertension (principal); E78.2 Mixed hyperlipidemia; E66.9 Obesity, unspecified; Z12.5 Encounter for screening for malignant neoplasm of prostate; Z79.899 Other long term (current) drug therapy; R73.09 Other abnormal glucose
CPT/HCPCS: 36415; 80053; 80061; 83036; 84153; 84443; 85027; G0103

== ENCOUNTER 2024-12-16 15:14 | Emergency (ER) | payer BC, SELFPAY ==
--- NOTE | ~2024-12-16 | XR_ITS ---
XR ankle LT min 3V Ordering provider: Samreen Casey NP History: . Generalized pain/swelling Lt ankle; twisted ankle this P.M. . Comparison: None. FINDINGS: BONES: No acute fracture or dislocation. JOINT SPACES: The ankle mortise is normal. SOFT TISSUES: Normal. IMPRESSION: No acute osseous abnormality left ankle. Reviewed, dictated and finalized at location A.
[2024-12-16 15:25] VITALS: BP 151/95; PULSE 100; RESP 16; TEMP 36.1; O2SAT 99
--- NOTE | 2024-12-16 15:31 | ED.LOWEXIN ---
HPI - Extremity Injury (Lower) General Chief Complaint: Extremity Injury, Lower Stated Complaint: Injured Ankle Time Seen by Provider: 12/16/24 15:50 Source: patient and RN notes reviewed Mode of arrival: ambulatory Limitations: no limitations History of Present Illness HPI Narrative: 44-year-old male presents with concern for ankle injury. Reports he was stepping out of his truck when he rolled his left ankle when he stepped on a rock. Reports generalized ankle pain, worse in the lateral ankle. Reports it hurts to bear weight, he is using a cane. MD complaint: ankle injury Related Data Home Medications ?Medication ?Instructions ?Recorded ?Confirmed ?Last Taken ?Type latanoprost 0.005 % eye drops 1 drp EACH EYE HS 06/02/24 12/16/24 Unknown History sildenafil (pulm.hypertension) 20 20 mg PO PRN PRN Erectile 06/02/24 12/16/24 Unknown History mg tablet Dysfunction timolol maleate 0.5 % eye drops 1 drp EACH EYE DAILY 06/02/24 12/16/24 Unknown History Adults Multivitamin 1 tablet PO DAILY 07/29/24 12/16/24 08/02/24 History esomeprazole magnesium 20 mg 20 mg PO DAILY 07/29/24 12/16/24 Unknown History capsule,delayed release (Nexium) Allergies Allergy/AdvReac Type Severity Reaction Status Date / Time No Known Allergies Allergy Verified 12/16/24 15:22 Review of Systems Review of Systems: CONSTITUTIONAL: Denies malaise, chills, sweats, or fever. SKIN: Denies rash or itching, open skin, laceration, abrasion, redness, warmth, swelling. MUSCULOSKELETAL: Reports left ankle pain NEUROLOGIC: Denies numbness, weakness All systems reviewed & are unremarkable except as noted in HPI and below PMFSH Past Medical History Medical History (Updated 12/16/24 @ 15:57 by Samreen Casey NP) Bilateral renal stones Obesity (BMI 30-39.9) Glaucoma associated with chamber angle anomaly, mild stage Mixed hyperlipidemia Idiopathic gout Surgical History Surgical History (Updated 12/07/24 @ 14:17 by Olivia Pepe) H/O lithotripsy History of removal of calculus of renal pelvis through percutaneous nephrostomy No significant past surgical history Family History Family History Mother Patient's mother is in good health Father Patient's father is in good health Grandparent Carcinoma of colon Social History Social History Social History: caffeine- none daily Smoking status: Never smoker Second hand tobacco smoke exposure: No Alcohol intake: current Drinks per week: 12 Alcohol use details: liquor Substance use: never Substance use type: marijuana Last use: 2020 Do You Feel Safe in your Home?: Yes Lack of Transportation: No Lack of Food: Sometimes True Current Housing: I Have Housing Concerned About Future Housing: No Difficulty Paying Gas/Electric Bills: No Difficulty Paying for Meds: No Currently Unemployed: No Education: Bachelor's Degree Difficulty w/ Childcare or Family Care: No Living arrangements: alone Spiritual care concerns: No Comments At time of signature, agree with nursing past medical, surgical, social and family history. There is no relevant family history pertinent to the presenting complaint Exam Narrative: GENERAL: Well-appearing, well-nourished, and in no acute distress. HEAD: Normocephalic, atraumatic. EYES: PERRLA, conjunctivae clear NECK: Supple. CHEST: Speaks in full sentences. No respiratory distress. HEART: Regular rate and rhythm. Normal and equal peripheral pulses. EXTREMITIES: Left ankle, foot, digits have grossly normal strength and sensation, grossly normal range of motion. No edema or ecchymosis. Normal sensation with sensitivity to light touch and pain. General ankle tenderness. No open wounds, no skin tenting, no devitalized tissue or atrophy, no trophic changes, no obvious deformity, alignment normal, nearby joints and structures intact. Distal pulses palpable and equal bilaterally, skin warm, dry, pink. Capillary refill less than 3 seconds. SKIN: Warm, dry, no rash. NEURO: Alert and oriented x3. PSYCH: Normal mood and affect Course Course Emergency Course: Patient is aware of diagnosis, understands and agrees to treatment plan. Anticipatory guidance given. Patient agrees to follow-up as directed and is aware of reasons to seek care at the emergency department. Portions of this record may have been created with voice recognition software Level of Care: Express Care Visit Vital Signs Vital signs: Vital Signs Temperature 96.9 F L 12/16/24 15:25 Pulse Rate 100 12/16/24 15:25 Respiratory Rate 16 12/16/24 15:25 Blood Pressure 151/95 H 12/16/24 15:25 Pulse Oximetry 99 12/16/24 15:25 Temperature 96.9 F L 12/16/24 15:25 Pulse Rate 100 12/16/24 15:25 Respiratory Rate 16 12/16/24 15:25 Blood Pressure 151/95 H 12/16/24 15:25 Pulse Oximetry 99 12/16/24 15:25 Reviewed. MDM - Extremity Injury (Lower) MDM Narrative Medical decision making narrative: Patients injury and pain is consistent with musculoskeletal etiology. No signs of neurological or vascular compromise on exam. Compartments and tissues are soft without signs of compartment syndrome. Pain is felt appropriate for further evaluation on an outpatient basis. Imaging Data My impression: Images reviewed, interpreted by radiologist, agree, see report. Radiologist's impression: XR ankle LT min 3V Ordering provider: Samreen Casey NP History: . Generalized pain/swelling Lt ankle; twisted ankle this P.M. . Comparison: None. FINDINGS: BONES: No acute fracture or dislocation. JOINT SPACES: The ankle mortise is normal. SOFT TISSUES: Normal. IMPRESSION: No acute osseous abnormality left ankle. Critical Care Time Critical Care Time Critical Care Time: No Discharge Plan Discharge Clinical Impression: Ankle sprain Patient Disposition: Home, Self-Care Condition: Stable Instructions: Ankle Sprain (ED) Additional Instructions: Avoid activities that cause pain until the pain subsides. Ice to the area 20-30 minutes 4-6 times a day Elevate above heart Walking boot as directed for comfort Tylenol for lesser pain Ibuprofen regularly for the next 2-3 days for the inflammation Follow up with your primary care provider if the condition is not improving within 1 week. If the condition worsens with numbness, tingling, decrease sensation with weakness seek treatment in the emergency room immediately. Patient Language: Maori Prescriptions: New (DME) Walking Boot See Rx Instructions .Route .MEDSUPPLY Qty: 1 0RF Rx Instructions: LLE No Action timolol maleate 0.5 % drops 1 drp EACH EYE DAILY sildenafil (pulm.hypertension) 20 mg tablet 20 mg PO PRN PRN (Reason: Erectile Dysfunction) latanoprost 0.005 % drops 1 drp EACH EYE HS lisinopril 10 mg tablet 10 mg PO DAILY Qty: 90 1RF Adults Multivitamin 1 tablet PO DAILY esomeprazole magnesium [Nexium] 20 mg Capsule,Delayed Release(Dr/Ec) 20 mg PO DAILY cetirizine 10 mg tablet See Rx Instructions .ROUTE .COMPLEX Qty: 90 1RF Dose Instruction: TAKE 1 TABLET BY MOUTH DAILY Rx Instructions: TAKE 1 TABLET BY MOUTH DAILY atorvastatin 20 mg tablet 20 mg PO DAILY Qty: 90 1RF allopurinol 300 mg tablet 300 mg PO DAILY Qty: 90 1RF Follow-up/Referrals: PHYSICIAN,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
== END 2024-12-16 16:02 | disposition home or self-care (01) ==
PROVIDERS: Emergency Provider Nurse Practitioner
DX: S93.402A Sprain of unspecified ligament of left ankle, initial encounter (principal); W22.8XXA Striking against or struck by other objects, initial encounter; E78.2 Mixed hyperlipidemia; M10.00 Idiopathic gout, unspecified site; H40.50 Glaucoma secondary to other eye disorders, unspecified eye; E66.9 Obesity, unspecified; Z68.35 Body mass index [BMI] 35.0-35.9, adult
CPT/HCPCS: 73610; 99213; G0463

== ENCOUNTER 2025-04-19 11:50 | Outpatient (CLI) | payer BC, SELFPAY ==
--- OUTSIDE RECORDS SUMMARY | 2025-04-19 11:52 | XMS_ITS | Clinical Summary ---
Author Organization [facility] Address [address] 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 This disclosure is being madepursuant to the Care Everywhere program and may not contain all information available regarding this patient. Last updated 18.[facility] Allergies No known active allergies Medications * Be aware that medications may not be up to date on this document. Alwaysverify current medications with the patient. allopurinol (ZYLOPRIM) 300 MG tablet Take 300 mg by mouth once daily Active Latanoprostene Bunod (VYZULTA OP) Active fluticasone propionate (FLONASE) 50 MCG/ACT nasal sprayIndication s:Nasal Signs and Symptoms [place] 2 sprays into each nostril once daily Reasons: Signs and Symptoms of Nose Diseases 1 bottles 02/23/2019 Active Immunizations Immunization Administration Dates Next Due TDAP (7yrs+) 06/14/2019 Family History Medical History Relation Name Comments Jaundice Mother Asthma Neg Hx Autoimmune Disease Neg Hx Bipolar Disorder Neg Hx Cancer - Breast Neg Hx Cancer - Colon Neg Hx Cancer - Other Neg Hx Cancer - Ovarian Neg Hx Cancer - Pancreatic Neg Hx Cancer - Prostate Neg Hx Depression Neg Hx Eczema Neg Hx Hypertension Neg Hx Migraine Neg Hx Osteoporosis Neg Hx Seizures Neg Hx Sudd. <30 Neg Hx Thyroid Disease Neg Hx Ulcerative Colitis Neg Hx Relation Name Status Comments Father Alive Mother Alive Social History Tobacco Use Types Packs/Day Years Used Date Smoking Tobacco: Never Smokeless Tobacco: Never Tobacco Cessation:Counseling Given: No Alcohol Use Standard Drinks/Week Comments No 0 (1 standard drink = 0.6 oz pur e alcohol) Sex and Gender Information Value Date Recorded Sex Assigned at Not on file Legal Sex Male 5:[address] MAN Gender Identity Not on file Sexual Orientation Not on file Last Filed Vital Signs Vital Sign Reading Time Taken Comments Blood Pressure 128/80 06/14/2019 12:46 PM CDT Pulse 89 06/14/2019 12:46 PM CDT Temperature 37.3 C (99.1 F) 06/14/2019 12:46 PM CDT Respiratory Rate 18 06/14/2019 12:46 PM CDT Oxygen Saturation 97% 06/14/2019 12:46 PM CDT Inhaled Oxygen Concentration - - Weight 104.3 kg (230 lb) 06/14/2019 12:46 PM CDT Height 167.6 cm (5' 6) 06/14/2019 12:46 PM CDT Body Mass Index 37.12 06/14/2019 12:46 PM CDT Plan of Treatment Health Maintenance Due Date Last Done Comments LIPID TESTING 1980 HIV SCREENING 1995 HEPATITIS C SCREENING 05/20/1998 HEPATITIS B VACCINE (1 of 3 - 19+ 3-dose series) 1999 HPV VACCINE (1 - 3-dose SCDM series) 2007 COVID-19 VACCINE (2023-2 5 season) 2024 DEPRESSION SCREENING 10/07/2024 INFLUENZA VACCINE (#1) 2025 DTAP/TDAP/TD VACCINES (2 - T d or Tdap) 06/14/2029 06/14/2019 ZOSTER VACCINE (1 of 2) 2030 HIB VACCINE Aged Out No longer eligi ble based on patient's age to complete this topic MENINGOCOCCAL (Group B) VACC INE SHARED DECISION-MAKING Aged Out No longer eligibl e based on patient's age to complete this topic MENINGOCOCCAL GROUPS A/C/Y/W VACCINE Aged Out No longer eligible b ased on patient's age to complete this topic PNEUMOCOCCAL VACCINE Aged Out No long er eligible based on patient's age to complete this topic Insurance [facility] Care Teams Pattern 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
[2025-04-19 17:35] LABS: Hematocrit 42.5 % (42.0-52.0); Hemoglobin 14.3 g/dL (14.0-18.0); Mean Corpuscular HGB Conc 33.6 g/dl (32-36); Mean Corpuscular Hemoglobin 30.2 pg (26-34); Mean Corpuscular Volume 89.7 fl (80-100); Platelet Count Result 251 k/mm3 (150-375); Red Blood Count 4.74 M/mm3 (4.6-6.20); White Blood Count 9.0 K/mm3 (4.5-10.0)
[2025-04-19 17:43] LABS: Iron 105 ug/dL (49-181)
[2025-04-19 17:49] LABS: Hemoglobin A1C 5.3 % (<5.7)
[2025-04-19 18:00] LABS: Alanine Aminotransferase 49 U/L (6-50); Albumin Level 4.5 g/dL (3.5-5.1); Alkaline Phosphatase 59 U/L (38-126); Anion Gap 10 mmol/L (4-12); Aspartate Amino Transferase 43 U/L (17-59); Bilirubin,Total 0.6 mg/dL (0.2-1.3); Blood Urea Nitrogen 14 mg/dL (9-20); Calcium 9.2 mg/dL (8.4-10.2); Carbon Dioxide 25 mmol/L (22-30); Chloride 103 mmol/L (98-107); Cholesterol 171 mg/dL (0-200); Estimated Glomerular Filt Rate > 60; Glucose 93 mg/dL (65-110); HDL Direct 41 mg/dL; Potassium 4.1 mmol/L (3.4-5.0); Sodium 138 mmol/L (137-145); Total Protein 7.5 g/dL (6.3-8.2); Triglycerides 145 mg/dL (<150)
[2025-04-19 18:01] LABS: Percent Iron Saturation 31 % (20-50)
[2025-04-19 18:55] LABS: Vitamin B12 753.0 pg/mL (239-931)
[2025-04-22 05:07] LABS: Free Testosterone (Direct) 7.1 pg/mL (6.8-21.5)
== END 2025-04-19 11:51 | disposition home or self-care (01) ==
LOC: ANHGOSHLAB 11:50
PROVIDERS: PCP Family Medicine; Visit Provider Nurse Practitioner
DX: E78.2 Mixed hyperlipidemia (principal); R53.83 Other fatigue; R68.82 Decreased libido; R73.09 Other abnormal glucose
CPT/HCPCS: 36415; 80053; 80061; 82607; 83036; 83540; 83550; 84402; 85027

== ENCOUNTER 2025-04-22 08:50 | Outpatient (CLI) | payer BC, SELFPAY ==
--- OUTSIDE RECORDS SUMMARY | 2025-04-22 08:57 | XMS_ITS | Data Portability ---
Author Organization [place] - [facility] Address [address] [place] [id number] Assessment No assessment recorded. Plan of Treatment Reminders Order Date Submit Date Provider Last Modified By Organization Details Last Modified Time Details Appointments None recorded. Lab rapid influenza virus A + B and SARS CoV + SARS CoV 2 Ag panel, [place], upper respiratory specimen 2020 [facility] In-Office Order, Internal Use Only DO Not Attach Compendium DO Not Attach Compendium, Do Not Delete/merge, [id number] 10:30:32 Referral None recorded. Procedures None recorded. Surgeries None recorded. Imaging None recorded. Medication Orders benzonatate 200 mg capsule 2020 [id number], [address], [place], [id number], 10:48:45 Patient TargetsNo targets recorded. Patient Instructions Encounter Date Encounter Id Patient Instructions Last Modified By Organization Details Last Modified Time 10/06/2021 [id number] Rest and drink plenty of fluids. He can alternate Tylenol and ibuprofen as needed for fever, body aches and headaches. He can take Mucinex as needed for mucus. May take benzonatate as needed for cough. Please return here to urgent care or follow up with primary care provider as needed for new or worsening symptoms. [email or web address] Not available 10/06/2021 10:48:35 Reason for Referral None Reported. Results Created Date Observation Date Name Description Value Unit Range Abnormal Flag Note LastModifiedBy Organization Detail LastModifiedTime 10/06/20 21 10/06/2021 rapid influ gallito virus A + B and SARS CoV + SARS CoV 2 Ag panel , [place], upper respi rator y speci men Flu A (reference range: negative) negati ve Not Available In-Office Order Internal Use Only DO Not Attach Compendium DO Not Attach Compendium, Do Not Delete/merge, [id number] 10/06/2021 09:57:44 10/06/20 21 10/06/2021 rapid influ gallito virus A + B and SARS CoV + SARS CoV 2 Ag panel , [place], upper respi rator y speci men Flu B (reference range: negative) negati ve Not Available In-Office Order Internal Use Only DO Not Attach Compendium DO Not Attach Compendium, Do Not Delete/merge, [id number] 10/06/2021 09:57:44 10/06/20 21 10/06/2021 rapid influ gallito virus A + B and SARS CoV + SARS CoV 2 Ag panel , [place], upper respi rator y speci men SARS (reference range: negative) positi ve Not Available In-Office Order Internal Use Only DO Not Attach Compendium DO Not Attach Compendium, Do Not Delete/merge, [id number] 10/06/2021 09:57:44 10/06/20 21 10/06/2021 rapid influ gallito virus A + B and SARS CoV + SARS CoV 2 Ag panel , [place], upper respi rator y speci men Lot# [id number] Not Available In-Office Order Internal Use Only DO Not Attach Compendium DO Not Attach Compendium, Do Not Delete/merge, [id number] 10/06/2021 09:57:44 10/06/20 21 10/06/2021 rapid influ gallito virus A + B and SARS CoV + SARS CoV 2 Ag panel , [place], upper respi rator y speci men Expiration date: 2022 Not Available In-Office Order Internal Use Only DO Not Attach Compendium DO Not Attach Compendium, Do Not Delete/merge, [id number] 10/06/2021 09:57:44 10/06/20 21 10/06/2021 rapid influ gallito virus A + B and SARS CoV + SARS CoV 2 Ag panel , [place], upper respi rator y speci men County Records Management Officer : quidel Not Available In-Off ice Order Internal Use Only DO Not Attach Compendium DO Not Attach Compendium, Do Not Delete/merge, [id number] 10/06/2021 09:57:44 Result Notes None recorded. Problems Name Problem SNOMED Code Status Onset Date Resolution Date Notes Provider Name and Address Organization Details Recorded Time Suspected COVID-19 525924444 Active 021 YANELI MARTIN [address], [place], [address], [address] 09:57:42 COVID-19 155509533 Active 021 YANELI MARTIN [address], [place], [address], [facility] [place] 10:47:44 Problem Notes None recorded. Medical Equipment None Reported. Allergies No known drug allergies Medications Name Sig Start Date Stop Date Status Note LastModified by Organization Details LastModified Time latanoprost 0.005 % eye drops INSTILL 1 DROP IN EACH EYE EVERY DAY IN THE EVENING active Not Available Not Available No t Available atorvastatin 20 mg tablet TAKE 1 TABLET BY MOUTH DAILY active Not Available Not Available No t Available cetirizine 10 mg tablet TAKE 1 TABLET BY MOUTH DAILY 10/06 completed Not Available Not Available Not Available azithromycin 250 mg tablet TAKE 2 TABLETS BY MOUTH FOR 1 DAY THEN TAKE 1 TABLET BY MOUTH DAILY FOR 4 DAYS 10/06 completed Not Available Not Available Not Available benzonatate 200 mg capsule Take 1 capsule 3 times a day by oral route. 2020 active Not Available Not Available Not Avai lable allopurinol 100 mg tablet TAKE 1 TABLET BY MOUTH EVERY EVENING 10/06 completed Not Available Not Available Not Available allopurinol 300 mg tablet TAKE 1 TABLET BY MOUTH DAILY active Not Available Not Available No t Available Vitals Date Recorded Body weight Heart rate Respiratory rate Oxygen saturation Oxygen saturation in Arterial blood by Pulse oximetry Body temperature Body mass index (BMI) Body height Systolic And Diastolic Provider Name and Address Organization Details Last Updated DateTime 764425. 25 g 108 /min 18 /min 99 % 99 % 99.1 [degF] 37.1 kg/m2 167.64 cm 140/80 mm[Hg] Suzie Pereira RN [address] 09:32:37 Social History Question Answer Notes LastModified by Organizat ion Details LastModified Time Tobacco Smoking Status Never Smoker Suzie Pereira RN null, [address] 10/06/2021 09:34:35 What Is Your Level Of Caffeine Consumption? Occasional [email or web address] Information not available 10/06/2021 Sex: Unknown Functional Status None recorded. Mental Status None recorded. Family History Nothing Reported. Medical History Condition Response Glaucoma Y High Cholesterol Y Past Encounters Encounter ID Performer Location Encounter Start Date Encounter Closed Date Diagnosis/Indication Diagnosis SNOMED-CT Code Diagnosis ICD10 Code Diagnosis Note [id number] YANELI MARTIN [facility] [address] [place] [address] 10/06/2021 08:06:16 10/06/2021 13:22:26 Suspected COVID-19 859982615 Z03.818 COVID-19 118378984 U07.1 rapid COVID a positive. Rapid flu negative. Health Concerns Section Related Observation LastModified by Organization Detai ls LastModified Time None Recorded Concern Status LastModified by Organization Details LastModified Time None Recorded Advance Directives Directive None Recorded Payers Insurance Date Sequence Insurance Name Policy Number Policy Meza Covered Member ID Meza Member ID Guarantor Name 10/06/2021 1 [facility] Tyron Almeida [id number] Tyron Almeida Notes Date Note Type Note Provider Name and Address Organization Details Recorded Time 10/06/2021 text/html Patient presents with one day of subjective fever, chills, sweats, splitting headache, nasal congestion, body aches and and mild sore throat. He has been fully vaccinated for COVID but has not had the booster. No known sick contacts. He has been treating with Excedrin with some temporary improvement symptoms. No vision changes, chest pain or palpitations, nausea vomiting abdominal pain, changes in bowel or bladder habits, rashes. Symptoms are moderate and worsening. YANELI MARTIN [address], [place], [address], [address] 10/06/2021 10:48:50
--- OUTSIDE RECORDS SUMMARY | 2025-04-22 08:57 | XMS_ITS | Clinical Summary ---
Author Organization [facility] Address [address] [place] [address] Care Team Providers Care Supervisor Of Officials Name Role Phone Calvin Barrett MD Primary Care Provider [phone] Source Comments [employer],non-owned Affiliates and Associated Physician Practices is amultiple site organization consisting of ambulatory clinics and hospital sitesin [place], [place], [place] and [place]. This disclosure is being madepursuant to the Care Everywhere program and may not contain all information available regarding this patient. Last updated 18.[facility] Allergies No known active allergies Medications * Be aware that medications may not be up to date on this document. Alwaysverify current medications with the patient. 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
--- OUTSIDE RECORDS SUMMARY | 2025-04-22 08:57 | XMS_ITS | Continuity of Care Document ---
Author Organization [facility] Address [address] [place] [address] Phone Care Team Providers Care Rn Peritoneal Dialysis Name Role Phone Connor Campbell Unavailable Unavailable Procedures Procedure Date Visual Field Examination(s) Office/outpatient Visit, [facility] Corneal Pachymetry Advance Directives Directive Yes / No Effective Date File Name No Information Encounters Encounter Description Practice Location Reason(s) For Visit Diagnoses Date Provider Providers Copied on Encounter [facility], [address] [place] [address] [address], [place], [place], [id number], tel:[phone] [facility] No Information 0 Adrian Connor. [address] [place] [address], [facility], . tel:[phone] Referring Provider: Connor romo, [address] [place] [address], [place], [place], [facility]. tel:[phone] Office/outpat ient Visit, [facility], [address], [place], [place], [id number], tel:[phone] [facility] No Information 0 Adrian Connor. [address] [place] [address], [facility], [place]. tel:[phone] Referring Provider: Kuldeep Johnson, [address] [place] [address] [address], [place], [address]. tel:[phone] Family History Family Member Type Diagnosis Age At Onset No Information Payers Payer name Insurance type Covered constitution party ID Rui dacosta(s) [facility] CI [id number] Social History Type Description Quantity Date Captured Comments Sex Male Smoking Status No Information Chief Complaint And Reason For Visit No Information Reason For Referral Reason For Referral No Information History Of Present Illness Encounter Date Complaint History Of Prese nt Illness No Information Functional Status Date Functional Assessmen t No Information Instructions Date Instruction Additional Infor mation No Information Assessments Type Assessment Date No Information Patient Care Teams Name Effective Dates (start - stop) Status Members No Information
[2025-04-25 12:07] LABS: Free Testosterone (Direct) 6.4 pg/mL (6.8-21.5)
== END 2025-04-22 08:51 | disposition home or self-care (01) ==
LOC: ANHGOSHLAB 08:51
PROVIDERS: PCP Family Medicine; Visit Provider Nurse Practitioner
DX: R53.83 Other fatigue (principal)
CPT/HCPCS: 84402

== ENCOUNTER 2025-05-14 09:47 | Outpatient (CLI) | payer BC, SELFPAY ==
--- NOTE | 2025-05-14 | ECG_ITS ---
Test Date: 2025-05-14 10:11:54 Measurements Intervals [place] Rate: 66 P: 37 SC: 157 QRS: 46 QRSD: 88 T: 30 QT: 376 QTc: 396 Interpretive Statements SINUS RHYTHM NORMAL ECG Compared to ECG 07/31/2024 10:16:17 No significant changes Electronically Signed On 05-14-2025 10:52:52 CDT by Hussain Flowers D.O.
--- OUTSIDE RECORDS SUMMARY | 2025-05-14 09:56 | XMS_ITS | Continuity of Care Document ---
Author Organization [facility] Address [address] [place] [address] Phone Care Team Providers Care Manager Spa Name Role Phone Connor Campbell Unavailable Unavailable Procedures Procedure Date Visual Field Examination(s) Office/outpatient Visit, [facility] Corneal Pachymetry Advance Directives Directive Yes / No Effective Date File Name No Information Encounters Encounter Description Practice Location Reason(s) For Visit Diagnoses Date Provider Providers Copied on Encounter [facility], [address] [place] [address] [address], [place], [place], [id number], tel:[phone] [facility] No Information 0 Adrian Connor. [address] [place] [address], [facility], . tel:[phone] Referring Provider: Connor romo, [address] [place] [address], [place], [place], [facility]. tel:[phone] Office/outpat ient Visit, [facility], [address], [place], [place], [id number], tel:[phone] [facility] No Information 0 Adrian Connor. [address] [place] [address], [facility], [place]. tel:[phone] Referring Provider: Kuldeep Johnson, [address] [place] [address] [address], [place], [address]. tel:[phone] Family History Family Member Type Diagnosis Age At Onset No Information Payers Payer name Insurance type Covered republican ID Rui dacosta(s) [facility] CI [id number] Social History Type Description Quantity Date Captured [...]
--- OUTSIDE RECORDS SUMMARY | 2025-05-14 09:56 | XMS_ITS | Clinical Summary ---
Author Organization [facility] Address [address] [place] [address] Care Team Providers Care Labor/Excavator Name Role Phone Calvin Barrett MD Primary Care Provider [phone] Source Comments [employer] [facility],non-owned Affiliates and Associated Physician Practices is amultiple site organization consisting of ambulatory clinics and hospital sitesin [place], [place], [place] and [place]. This disclosure is being madepursuant to the Care Everywhere program and may not contain all information available regarding this patient. Last updated 18.[employer] Allergies No known active allergies Medications * Be aware that medications may not be up to date on this document. Alwaysverify current medications with the patient. 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
== END 2025-05-14 09:48 | disposition home or self-care (01) ==
PROVIDERS: PCP Family Medicine
DX: Z01.818 Encounter for other preprocedural examination (principal); I10 Essential (primary) hypertension
CPT/HCPCS: 93005